=== PATIENT | male | born 1935 | race Caucasian/White ===

== ENCOUNTER 2019-06-18 13:10 | Day surgery (SDC) | payer MEDICARE, OTHER ==
[~2019-06-18 13:10] MED LIST: Lactated Ringers 1,000 ML IV SCH; Propofol 200 MG/20 ML SDV ONE; Sodium Chloride 0.9% 10 ML Syringe FLUSH PRN
[2019-06-18] MEDS ORDERED: Propofol 200 MG/20 ML SDV ONE (14:33)
--- NOTE | 2019-06-18 14:35 | PCM.PN ---
- General Info Date of Service: 06/18/19 - Review of Systems Systems Review Comment:: 83-year-old male with history of hematochezia referred for colonoscopy. It is been several years since his last colon exam. He is medically stable to proceed today. His recent history and physical is reviewed and no significant changes are noted. I discussed the proposed colonoscopy with the patient. Risks such as but not limited to bleeding and GI injury reviewed. He agrees to proceed. - Patient Data Vitals - Most Recent: Last Vital Signs Temp 98.2 F 06/18/19 14:09 Pulse 61 06/18/19 14:09 Resp 20 06/18/19 14:09 BP 125/73 06/18/19 14:09 Pulse Ox 95 06/18/19 14:09 Weight - Most Recent: 77.111 kg Med Orders - Current: Current Medications Lactated Ringer's (Ringers, Lactated) 1,000 mls @ 125 mls/hr IV ASDIRECTED MORENA Last Admin: 06/18/19 14:08 Dose: 125 mls/hr Sodium Chloride (Saline Flush) 10 ml FLUSH ASDIRECTED PRN PRN Reason: Keep Vein Open Discontinued Medications Propofol (Diprivan 20 Ml) Confirm Administered Dose 200 mg .ROUTE .STK-MED ONE Stop: 06/18/19 08:26 - Problem List Review Problem List Initiated/Reviewed/Updated: Yes - My Orders Last 24 Hours: My Active Orders 06/18/19 12:30 Patient Status [ADT] Routine Peripheral IV Care [RC] . DIRECTED Verify Patient Consent Obtain [RC] ASDIRECTED Lactated Ringers [Ringers, Lactated] 1,000 ml IV ASDIRECTED Sodium Chloride 0.9% [Saline Flush] 10 ml FLUSH ASDIRECTED PRN Peripheral IV Insertion Adult [OM.PC] Routine - Assessment Assessment:: hematochezia - Plan Plan:: colonoscopy
--- NOTE | 2019-06-18 15:03 | PCM.OPNOTE ---
- General Post-Op/Procedure Note Date of Surgery/Procedure: 06/18/19 Operative Procedure(s): Colonoscopy Findings: Moderate Sigmoid Diverticulosis Internal Hemorrhoids Pre Op Diagnosis: Hematochezia Post-Op Diagnosis: Sigmoid Diverticulosis. Internal Hemorroids Anesthesia Technique: MAC Primary Surgeon: Alan Sarkar Pathology: none EBL in mLs: 0 Complications: None Condition: Good
--- NOTE | 2019-06-18 18:10 | OR ---
Date of Procedure: 06/18/2019 PREOPERATIVE DIAGNOSIS: Hematochezia. POSTOPERATIVE DIAGNOSES: 1. Sigmoid diverticulosis. 2. Internal hemorrhoids. OPERATION PERFORMED: Colonoscopy. INDICATIONS FOR SURGERY: This 83-year-old male recently had an episode of hematochezia. It has been several years since his last colonoscopy and he is referred for this exam. FINDINGS: No active bleeding is seen today. The patient does have a moderate degree of sigmoid diverticulosis, although this does not appear to be acutely inflamed or otherwise complicated. There are also internal hemorrhoids, although these were not bleeding today. The remainder of the colon appears normal. DESCRIPTION OF PROCEDURE: The patient was taken to the operating room. He was given intravenous sedation and with him in the left lateral decubitus position, digital rectal exam was performed showing no rectal masses. The Olympus colonoscope was inserted into the rectum. Retroflexed examination of the rectal canal was performed. The scope was then carefully advanced under direct visualization through the entire length of the colon until the cecum was reached. Cecal acquisition was confirmed by noting the normal internal cecal anatomy including the appendiceal orifice and the ileocecal valve. The light was also noted to transilluminate the abdominal wall in the right lower quadrant. After examining the cecum, the scope was slowly withdrawn sequentially re-examining the colonic segments until the entire colon and rectum had been fully examined. The scope was removed and the patient was taken from the operating room in satisfactory condition. ESTIMATED BLOOD LOSS: 0. COMPLICATIONS: None. PROGNOSIS: Good. FAY Sarkar MD /[id number]
== END 2019-06-18 16:05 | disposition home or self-care (01) ==
LOC: LL.SDS 13:10
PROVIDERS: ATTEND Surgery
DX: K57.31 Diverticulosis of large intestine without perforation or abscess with bleeding (principal); K64.8 Other hemorrhoids; I10 Essential (primary) hypertension; Z87.891 Personal history of nicotine dependence; Z88.6 Allergy status to analgesic agent; Z91.040 Latex allergy status; Z88.0 Allergy status to penicillin; Z88.8 Allergy status to other drugs, medicaments and biological substances; Z79.899 Other long term (current) drug therapy
CPT/HCPCS: J2704; J7120

== ENCOUNTER 2023-06-16 21:32 | Emergency (ER) | payer MEDICARE, OTHER ==
[2023-06-16 22:16] LABS: BASOPHILS ABSOLUTE AUTO 0.02 K/uL (0.00-0.20); BASOPHILS PERCENT AUTO 0.1 % (0.0-2.0); EOSINOPHILS ABSOLUTE AUTO 0.04 K/uL (0.00-0.50); EOSINOPHILS PERCENT AUTO 0.3 % (0.0-5.0); HEMATOCRIT 40.5 % (39.0-49.0); HEMOGLOBIN 13.2 g/dL (13.1-16.8); LYMPHOCYTES ABSOLUTE AUTO 1.17 K/uL (0.50-3.50); LYMPHOCYTES PERCENT AUTO 8.5 % (10.0-50.0); MEAN CORPUSCULAR HGB CONC 32.6 g/dL (31.7-36.0); MEAN CORPUSCULAR VOLUME 98.1 fL (84.0-98.0); MONOCYTES ABSOLUTE AUTO 1.72 K/uL (0.00-1.00); MONOCYTES PERCENT AUTO 12.5 % (2.0-14.0); NEUTROPHILS ABSOLUTE AUTO 10.85 K/uL (1.40-7.00); NEUTROPHILS PERCENT AUTO 78.6 % (45.0-80.0); PLATELET COUNT,PLT 122 K/uL (150-350); RED BLOOD CELL COUNT 4.13 M/uL (4.33-5.41); RED CELL DISTRIBUTION WIDTH 13.7 % (11.2-14.1); WHITE BLOOD CELL COUNT,WBC 13.8 K/uL (4.0-10.2)
[2023-06-16 22:19] LABS: APPEARANCE,URINE SLIGHTLY CLOUDY; BILIRUBIN,URINE NEGATIVE (NEGATIVE); COLOR,URINE YELLOW; GLUCOSE,URINE NEGATIVE (NEGATIVE); KETONES,URINE 15 mg/dL (NEGATIVE); LEUKOCYTE ESTERASE,URINE SMALL (NEGATIVE); NITRITE,URINE NEGATIVE (NEGATIVE); OCCULT BLOOD,URINE MODERATE (NEGATIVE); PROTEIN,URINE 100 mg/dL (NEGATIVE); UROBILINOGEN,URINE 0.2 E.U./dL (0.2-1.0)
[2023-06-16 22:25] LABS: CORONAVIRUS COVID-19 NAA NEGATIVE (NEGATIVE); INFLUENZA A NAA NEGATIVE (NEGATIVE); INFLUENZA B NAA NEGATIVE (NEGATIVE); RESPIRATORY SYNCYTIAL VIR NAA NEGATIVE (NEGATIVE)
[2023-06-16 22:26] LABS: RBC,URINE 20-30 /HPF; WBC,URINE >100 /HPF
[2023-06-16 22:27] LABS: BACTERIA,URINE MODERATE /HPF (NONE TO FEW); EPITHELIAL CELLS,URINE FEW /LPF; MUCUS,URINE RARE /LPF (NEGATIVE)
[2023-06-16 22:31] LABS: INR 1.2 (0.9-1.1); PROTHROMBIN TIME 11.8 SEC (9.0-11.1)
[2023-06-16 22:36] LABS: ALANINE AMINOTRANSFERASE,ALT 25 U/L (12-78); ALBUMIN 3.8 g/dL (3.4-5.0); ALKALINE PHOSPHATASE 68 IU/L (46-116); ANION GAP 11.7 meq/L (7-15); ASPARTATE AMNIOTRANSFERASE,AST 22 U/L (15-37); BILIRUBIN TOTAL 1.1 mg/dL (0.2-1.0); BLOOD UREA NITROGEN,BUN 21 mg/dL (7-18); CARBON DIOXIDE,CO2 27.3 mmol/L (21.0-32.0); CHLORIDE,CL 102 mmol/L (98-107); CREATININE 1.19 mg/dL (0.51-1.17); ESTIMATED GFR 59 mL/min (>=60); GLUCOSE RANDOM 104 mg/dL (70-99); POTASSIUM,K 4.2 mmol/L (3.5-5.1); PROTEIN TOTAL,TP 7.1 g/dL (6.4-8.2); SODIUM,NA 141 mmol/L (136-145)
[2023-06-16] MEDS ORDERED: Take Home: Ciprofloxacin HCl 500 MG, 6 Tab Pack PO ONE (22:46)
[2023-06-16] MEDS ORDERED: cefTRIAXone 1 GM Vial IM ONE (22:46)
[2023-06-16] MEDS ORDERED: Ciprofloxacin 500 MG Tab PO ONE (23:00)
[2023-06-16] MEDS ORDERED: Lidocaine 1% 5 ML VIAL ONE (23:01)
== END 2023-06-16 23:26 | disposition home or self-care (01) ==
LOC: LL.ED 21:32
DX: N39.0 Urinary tract infection, site not specified (principal); Z20.822 Contact with and (suspected) exposure to COVID-19; I10 Essential (primary) hypertension; E78.00 Pure hypercholesterolemia, unspecified; E03.9 Hypothyroidism, unspecified; Z79.82 Long term (current) use of aspirin; Z79.899 Other long term (current) drug therapy; Z91.018 Allergy to other foods; Z88.8 Allergy status to other drugs, medicaments and biological substances; Z91.040 Latex allergy status; Z88.6 Allergy status to analgesic agent
CPT/HCPCS: 0241U; 36415; 71046; 80053; 81001; 85025; 85610; 87086; 87088; 87186; 93005; 93010; 96372; 99284; 99285; A9270-GY; J0696; J3490

== ENCOUNTER 2023-12-07 10:56 | Emergency (ER) | payer MEDICARE, OTHER ==
[2023-12-07 11:22] LABS: BASOPHILS ABSOLUTE AUTO 0.02 K/uL (0.00-0.20); BASOPHILS PERCENT AUTO 0.6 % (0.0-2.0); EOSINOPHILS ABSOLUTE AUTO 0.18 K/uL (0.00-0.50); EOSINOPHILS PERCENT AUTO 5.7 % (0.0-5.0); HEMATOCRIT 36.2 % (39.0-49.0); LYMPHOCYTES ABSOLUTE AUTO 1.18 K/uL (0.50-3.50); LYMPHOCYTES PERCENT AUTO 37.2 % (10.0-50.0); MEAN CORPUSCULAR HEMOGLOBIN 32.4 pg (28.2-33.3); MEAN CORPUSCULAR HGB CONC 33.1 g/dL (31.7-36.0); MEAN CORPUSCULAR VOLUME 97.8 fL (84.0-98.0); MONOCYTES ABSOLUTE AUTO 0.47 K/uL (0.00-1.00); MONOCYTES PERCENT AUTO 14.8 % (2.0-14.0); NEUTROPHILS ABSOLUTE AUTO 1.32 K/uL (1.40-7.00); NEUTROPHILS PERCENT AUTO 41.7 % (45.0-80.0); PLATELET COUNT,PLT 115 K/uL (150-350); RED CELL DISTRIBUTION WIDTH 12.8 % (11.2-14.1); WHITE BLOOD CELL COUNT,WBC 3.2 K/uL (4.0-10.2)
[2023-12-07 11:45] LABS: ALANINE AMINOTRANSFERASE,ALT 20 U/L (12-78); ALBUMIN 3.7 g/dL (3.4-5.0); ALKALINE PHOSPHATASE 66 IU/L (46-116); ANION GAP 5.9 meq/L (7-15); ASPARTATE AMNIOTRANSFERASE,AST 27 U/L (15-37); BILIRUBIN TOTAL 0.6 mg/dL (0.2-1.0); BLOOD UREA NITROGEN,BUN 19 mg/dL (7-18); CALCIUM 8.7 mg/dL (8.5-10.1); CARBON DIOXIDE,CO2 30.1 mmol/L (21.0-32.0); CHLORIDE,CL 102 mmol/L (98-107); CREATININE 1.14 mg/dL (0.51-1.17); GLUCOSE RANDOM 93 mg/dL (70-99); POTASSIUM,K 4.3 mmol/L (3.5-5.1); PROTEIN TOTAL,TP 6.6 g/dL (6.4-8.2); SODIUM,NA 138 mmol/L (136-145)
[2023-12-07] MEDS: Lidocaine 1% 5 ML VIAL INJECT ONE (11:45)
[2023-12-07 11:46] LABS: ESTIMATED GFR 62 mL/min (>=60)
[2023-12-07] MEDS: Bacitracin Oint 1 GM U/D Packet TOP ONE (12:11)
== END 2023-12-07 12:30 | disposition home or self-care (01) ==
LOC: LL.ED 10:56
DX: S01.01XA Laceration without foreign body of scalp, initial encounter (principal); E78.00 Pure hypercholesterolemia, unspecified; I10 Essential (primary) hypertension; E03.9 Hypothyroidism, unspecified; Z88.8 Allergy status to other drugs, medicaments and biological substances; Z91.040 Latex allergy status; Z91.011 Allergy to milk products; Z79.82 Long term (current) use of aspirin; Z79.899 Other long term (current) drug therapy; W19.XXXA Unspecified fall, initial encounter
CPT/HCPCS: 12001; 36415; 80053; 83605; 85025; 99283; J3490

== ENCOUNTER 2024-10-21 09:25 | Observation (INO) | payer MEDICARE ==
[2024-10-21] MEDS ORDERED: Sodium Chloride 0.9% 10 ML Syringe FLUSH PRN (09:30)
[2024-10-21] MEDS: Sodium Chloride 0.9% 1,000 ML IV SCH (09:59)
[2024-10-21 10:01] LABS: BASOPHILS ABSOLUTE AUTO 0.05 K/uL (0.00-0.20); BASOPHILS PERCENT AUTO 0.8 % (0.0-2.0); EOSINOPHILS ABSOLUTE AUTO 0.21 K/uL (0.00-0.50); EOSINOPHILS PERCENT AUTO 3.5 % (0.0-5.0); HEMATOCRIT 40.7 % (39.0-49.0); HEMOGLOBIN 13.2 g/dL (13.1-16.8); IMMATURE GRAN ABSOLUTE AUTO 0.01 10^3/uL (0.00-0.04); IMMATURE GRAN PERCENT AUTO 0.2 % (0.0-0.4); LYMPHOCYTES ABSOLUTE AUTO 1.36 K/uL (0.50-3.50); LYMPHOCYTES PERCENT AUTO 22.8 % (10.0-50.0); MEAN CORPUSCULAR HEMOGLOBIN 31.1 pg (28.2-33.3); MEAN CORPUSCULAR HGB CONC 32.4 g/dL (31.7-36.0); MEAN CORPUSCULAR VOLUME 95.8 fL (84.0-98.0); MONOCYTES ABSOLUTE AUTO 0.61 K/uL (0.00-1.00); MONOCYTES PERCENT AUTO 10.2 % (2.0-14.0); NEUTROPHILS ABSOLUTE AUTO 3.73 K/uL (1.40-7.00); NEUTROPHILS PERCENT AUTO 62.5 % (45.0-80.0); PLATELET COUNT,PLT 164 K/uL (150-350); RED BLOOD CELL COUNT 4.25 M/uL (4.33-5.41)
[2024-10-21 10:23] LABS: LACTIC ACID 1.3 mmol/L (0.4-2.0)
[2024-10-21 10:28] LABS: POTASSIUM,K 4.3 mmol/L (3.5-5.1)
[2024-10-21 10:29] LABS: ALBUMIN 4.1 g/dL (3.4-5.0); ANION GAP 10.8 meq/L (7-15); BILIRUBIN TOTAL 1.1 mg/dL (0.2-1.0); CALCIUM 9.5 mg/dL (8.5-10.1); CARBON DIOXIDE,CO2 27.2 mmol/L (21.0-32.0); CREATININE 0.96 mg/dL (0.51-1.17); EST CRCL DRUG DOSING (CG) 48.77 mL/min; PROTEIN TOTAL,TP 7.4 g/dL (6.4-8.2)
[2024-10-21] MEDS ORDERED: Zolpidem 5 MG Tab PO PRN (12:04)
[2024-10-21] MEDS ORDERED: Ondansetron 4 MG Tab.DIS PO PRN (12:04)
[2024-10-21] MEDS ORDERED: Acetaminophen 325 MG Tab PO PRN (12:04)
[2024-10-21 13:19] LABS: BILIRUBIN,URINE SMALL (NEGATIVE); COLOR,URINE YELLOW; GLUCOSE,URINE NEGATIVE (NEGATIVE); KETONES,URINE 80 mg/dL (NEGATIVE); LEUKOCYTE ESTERASE,URINE NEGATIVE (NEGATIVE); NITRITE,URINE NEGATIVE (NEGATIVE); OCCULT BLOOD,URINE MODERATE (NEGATIVE); PH,URINE 5.5 (5.0-9.0); PROTEIN,URINE 100 mg/dL (NEGATIVE); UROBILINOGEN,URINE 0.2 E.U./dL (0.2-1.0)
[2024-10-21 13:20] LABS: APPEARANCE,URINE CLEAR; WBC,URINE 0-5 /HPF
[2024-10-21] MEDS ORDERED: Gabapentin 300 MG Cap PO SCH (18:00)
[2024-10-21] MEDS ORDERED: Non-Formulary Medication 1 Each (Pregabalin [Pregabalin] 150 MG Capsule) PO SCH (18:00)
[2024-10-21] MEDS ORDERED: Pregabalin 100 MG Cap PO SCH (18:00)
[2024-10-21] MEDS: Pregabalin 75 MG Cap PO SCH (18:28)
[2024-10-22] MEDS ORDERED: Levothyroxine 112 MCG Tab PO SCH (07:30)
[2024-10-22] MEDS: Aspirin 81 MG Tab.Chew PO SCH (08:11)
[2024-10-22] MEDS: Levothyroxine 100 MCG Tab PO SCH (08:11)
== END 2024-10-22 09:38 | disposition home or self-care (01) ==
LOC: LL.ED 09:25 → LL.MS 11:30
PROVIDERS: ADMIT Physician Assistant; ATTEND Physician Assistant
DX: R53.1 Weakness (principal); R47.81 Slurred speech; I10 Essential (primary) hypertension; E78.00 Pure hypercholesterolemia, unspecified; E03.9 Hypothyroidism, unspecified; Z88.8 Allergy status to other drugs, medicaments and biological substances; Z20.822 Contact with and (suspected) exposure to COVID-19; Z79.82 Long term (current) use of aspirin; Z79.890 Hormone replacement therapy; Z79.899 Other long term (current) drug therapy
CPT/HCPCS: 36415; 51701; 70450; 71045; 80053; 81001; 83605; 83880; 84484; 85025; 87428-QW; 93005; 93010; 96360; 96361; 99285-25; A9270-GY; C1758; J7030